=== PATIENT | female | born 1975 | race African-American/Black ===

== ENCOUNTER 2019-11-15 20:02 | Emergency (ER) | payer BC ==
[~2019-11-15] VITALS: Ht 160 cm; Wt 68.0 kg
--- NOTE | 2019-11-15 20:30 | NUR ---
Pt is in Room 5A. Dr. Jenkins at bedside for MSE.
[2019-11-15] MEDS: IBUPROFEN 800 MG TABLET PO ONE (20:35)
[2019-11-15] MEDS ORDERED: IBUPROFEN 800 MG TABLET ONE (20:38)
--- NOTE | 2019-11-15 20:50 | NUR ---
Logging Engineer at bedside.
--- NOTE | 2019-11-15 21:15 | NUR ---
Pt went down to CT at this time.
--- NOTE | 2019-11-15 21:56 | NUR ---
Pt back from CT at this time. Phone provided as requested. Ice packs placed on site.
--- NOTE | 2019-11-15 22:03 | NUR ---
Per Dr. Jenkins, hold off on the splint, until CT results are back.
--- NOTE | 2019-11-15 22:15 | NUR ---
Dr Jenkins made aware that CT resuls are back.
--- NOTE | 2019-11-15 22:25 | NUR ---
Paged Dr. Olivarez for consult. Dr Jenkins and Dr. Olivarez in phone call. Dr. Olivarez wants to admit patient for L ankle fracture. Pending insurance approval at this time.
--- NOTE | 2019-11-15 22:40 | NUR ---
IV 22g saline lock placed in right forearm
[2019-11-15 22:45] LABS: BASOPHILS % (AUTO) 0.7 % (0.0-2.0); EOSINOPHILS % (AUTO) 0.5 % (0.0-7.0); HEMOGLOBIN 12.7 g/dL (10.9-14.3); LYMPHOCYTES # (AUTO) 2.6 K/uL (20.0-40.0); LYMPHOCYTES % (AUTO) 47.9 % (20.5-51.5); MEAN CORPUSCULAR HEMOGLOBIN 33.7 uug (24.7-32.8); MEAN CORPUSCULAR HGB CONC 34 g/dL (32.3-35.6); MEAN CORPUSCULAR VOLUME 100.7 fL (75.5-95.3); MONOCYTES # (AUTO) 0.3 K/uL (2.0-10.0); NEUTROPHILS # (AUTO) 2.5 K/uL (1.8-8.9); NEUTROPHILS % (AUTO) 44.9 % (38.5-71.5); PLATELET COUNT (AUTO) 349 K/uL (179-408); RED BLOOD CELL COUNT(AUTO) 3.77 MIL/uL (3.63-4.92); WHITE BLOOD COUNT (AUTO) 5.5 K/uL (3.8-11.8)
--- NOTE | 2019-11-15 22:49 | NUR ---
Called for bed, [employer] will call me back.
[2019-11-15 22:51] LABS: CREATININE 0.9 mg/dL (0.6-1.3); POTASSIUM 3.7 mmol/L (3.5-5.1)
[2019-11-15 22:56] LABS: BILIRUBIN,DIRECT 0.1 mg/dL (0.0-0.2); BILIRUBIN,TOTAL 0.3 mg/dL (0.2-1.0); TOTAL PROTEIN, SERUM 7.8 g/dL (6.4-8.2)
--- NOTE | 2019-11-15 23:51 | NUR ---
Patient changed her mind about admission and requested to be discharge. Dr. Jenkins had a lengthy conversation with patient. Pedal pulses strong and equal bilaterally. Sugar Tong splint added to Short Leg splint, pt tolerated well. Wrapped with THOMAS wrap. Crutches dispensed, and teaching done. Pt is now cleared for DC. All written and verbal after care instructions given. Patient verbalizes understanding of instructions. Stressed follow up with Dr. Way for Ortho surgery; or return to ER for worsening s/s. Pt was wheeled out to her car by Didi VERMA, in stable condition.
[2019-11-16 00:05] VITALS: BP 105/88
== END 2019-11-15 23:50 | disposition home or self-care (01) ==
LOC: ER 20:05
DX: S82.842A Displaced bimalleolar fracture of left lower leg, initial encounter for closed fracture (principal); W01.0XXA Fall on same level from slipping, tripping and stumbling without subsequent striking against object, initial encounter; Y93.51 Activity, roller skating (inline) and skateboarding; Y92.89 Other specified places as the place of occurrence of the external cause
CPT/HCPCS: 36415; 73610; 73700; 85025; 85730; A4663

== ENCOUNTER 2019-11-17 12:57 | Inpatient (IN) | payer BC ==
[~2019-11-17] VITALS: Ht 160 cm; Wt 68.0 kg
--- NOTE | 2019-11-17 13:25 | NUR ---
Dr Rinaldi at the bedside for MSE. Pt arrived w LLE splint and using own crutches.
--- NOTE | 2019-11-17 13:30 | NUR ---
DR Rinaldi paged Dr Olivarez( Ortho), awaiting call back.
[2019-11-17] MEDS ORDERED: HYDROMORPHONE 2 MG/1 ML DISP.SYRIN ONE (13:40)
[2019-11-17] MEDS ORDERED: ONDANSETRON 4 MG/2 ML VIAL ONE (13:40)
[2019-11-17] MEDS ORDERED: HYDROMORPHONE 1 MG/1 ML DISP.SYRIN IM ONE (13:45)
[2019-11-17] MEDS ORDERED: ONDANSETRON 4 MG/2 ML VIAL IM ONE (13:45)
[2019-11-17] MEDS ORDERED: IV NORMAL SALINE 1000 ML BAG IV ONE (14:30)
[2019-11-17 15:04] LABS: BASOPHILS % (AUTO) 0.5 % (0.0-2.0); EOSINOPHILS # (AUTO) 0.1 K/uL (0.0-0.7); EOSINOPHILS % (AUTO) 0.6 % (0.0-7.0); HEMATOCRIT 35.9 % (31.2-41.9); HEMOGLOBIN 11.9 g/dL (10.9-14.3); LYMPHOCYTES # (AUTO) 4.3 K/uL (20.0-40.0); LYMPHOCYTES % (AUTO) 39.8 % (20.5-51.5); MEAN CORPUSCULAR HEMOGLOBIN 33.6 uug (24.7-32.8); MEAN CORPUSCULAR HGB CONC 33 g/dL (32.3-35.6); MONOCYTES # (AUTO) 0.7 K/uL (2.0-10.0); MONOCYTES % (AUTO) 6.8 % (0.0-11.0); NEUTROPHILS # (AUTO) 5.7 K/uL (1.8-8.9); NEUTROPHILS % (AUTO) 52.3 % (38.5-71.5); PLATELET COUNT (AUTO) 341 K/uL (179-408); RED BLOOD CELL COUNT(AUTO) 3.56 MIL/uL (3.63-4.92); WHITE BLOOD COUNT (AUTO) 10.9 K/uL (3.8-11.8)
[2019-11-17 15:08] LABS: CREATININE 0.9 mg/dL (0.6-1.3); POTASSIUM 2.9 mmol/L (3.5-5.1)
[2019-11-17 15:20] LABS: BILIRUBIN,DIRECT 0.1 mg/dL (0.0-0.2); BILIRUBIN,TOTAL 0.6 mg/dL (0.2-1.0); TOTAL PROTEIN, SERUM 7.7 g/dL (6.4-8.2)
--- NOTE | 2019-11-17 16:16 | NUR ---
Patient is resting comfortably in bed with eyes closed,NAD noted.
[2019-11-17 17:00] VITALS: BP 125/80
[2019-11-17] MEDS ORDERED: ONDANSETRON 4 MG/2 ML VIAL IV PRN (17:45)
[2019-11-17] MEDS ORDERED: POTASSIUM CHLORIDE 20 MEQ in IV D5/ 0.9% NACL 1,000 ML IV PRN (17:45)
[2019-11-17] MEDS ORDERED: ACETAMINOPHEN 650 MG SUPP.RECT RC PRN (17:45)
[2019-11-17] MEDS ORDERED: HYDROMORPHONE 1 MG/1 ML DISP.SYRIN IV PRN (17:45)
[2019-11-17] MEDS ORDERED: POTASSIUM CHLORIDE 20 MEQ TAB.PRT.SR PO ONE (18:10)
--- NOTE | 2019-11-17 18:36 | NUR ---
PATIENT CALM AND COMFORTABLE WITH NO SIGNS OF DISTRESS THROUGH OUT SHIFT AND STABLE VITAL SIGNS ; PATIENT AT BASELINE MENTAL STATUS; MEDICATION COMPLIANT.
[2019-11-17 20:00] VITALS: BP 143/87
--- NOTE | 2019-11-17 20:00 | NUR ---
Patient received into care, laying in bed with left leg elevated, talking on telephone. Pt is alert and oriented x4 and has no complaints of pain or discomfort at this time. Left AC IV cath is intact and patent and running prescribed IV fluids. All safety, allergy, isolation, and fall precaution measures are in place. Call light and personal items are within reach. Will continue to monitor and assess.
[2019-11-18 04:00] VITALS: BP 108/69
--- NOTE | 2019-11-18 05:00 | NUR ---
Patient slept intermittently throughout night with complaints of pain addressed with prescribed analgesics, which patient tolerated well with no adverse side effects verbalized by patient or noted/observed by this nurse. IV site is patent and intact with IVF running as ordered. All safety, fall, and isolation precautions remain in effect. Call light and personal items remain within reach.
--- NOTE | 2019-11-18 06:05 | NUR ---
Pt has questions for MD Olivarez and is unwilling to sign surgical consent until she speaks with the doctor.
[2019-11-18 06:28] LABS: BASOPHILS % (AUTO) 0.6 % (0.0-2.0); EOSINOPHILS # (AUTO) 0.1 K/uL (0.0-0.7); EOSINOPHILS % (AUTO) 1.7 % (0.0-7.0); HEMATOCRIT 31.2 % (31.2-41.9); HEMOGLOBIN 10.6 g/dL (10.9-14.3); LYMPHOCYTES % (AUTO) 29.6 % (20.5-51.5); MEAN CORPUSCULAR HEMOGLOBIN 34.6 uug (24.7-32.8); MEAN CORPUSCULAR HGB CONC 34 g/dL (32.3-35.6); MEAN CORPUSCULAR VOLUME 102.2 fL (75.5-95.3); MONOCYTES # (AUTO) 0.5 K/uL (2.0-10.0); NEUTROPHILS # (AUTO) 4.2 K/uL (1.8-8.9); NEUTROPHILS % (AUTO) 61.1 % (38.5-71.5); PLATELET COUNT (AUTO) 275 K/uL (179-408); RED BLOOD CELL COUNT(AUTO) 3.05 MIL/uL (3.63-4.92); WHITE BLOOD COUNT (AUTO) 6.9 K/uL (3.8-11.8)
[2019-11-18 07:07] LABS: CREATININE 0.8 mg/dL (0.6-1.3); MAGNESIUM 1.6 mg/dL (1.8-2.4); PHOSPHOROUS 2.4 mg/dL (2.5-4.9); POTASSIUM 3.6 mmol/L (3.5-5.1)
[2019-11-18] MEDS ORDERED: BUPIVACAINE 0.25% 30 ML VIAL ONE (07:20)
[2019-11-18] MEDS ORDERED: POLYMYXIN B SULFATE 500,000 UNITS VIAL IR ONE (07:30)
[2019-11-18] MEDS ORDERED: BACITRACIN 50,000 UNITS VIAL IR ONE (07:30)
--- NOTE | 2019-11-18 08:00 | NUR ---
Patient was taken down for surgery. Will assess once back on the floor.
[2019-11-18] MEDS ORDERED: HYDROMORPHONE 2 MG/1 ML DISP.SYRIN ONE (08:09)
[2019-11-18] MEDS ORDERED: MIDAZOLAM HCL 2 MG/2 ML VIAL ONE (08:09)
[2019-11-18] MEDS ORDERED: TRIAMCINOLONE ACETONIDE 40 MG/1 ML VIAL ONE (08:50)
[2019-11-18] MEDS ORDERED: PANTOPRAZOLE SODIUM 40 MG VIAL IV SCH (09:00)
[2019-11-18] MEDS ORDERED: VANCOMYCIN 1000 MG VIAL MC ONE (09:00)
[2019-11-18] MEDS ORDERED: SEVOFLURANE 250 ML BOTTLE ONE (09:06)
[2019-11-18] MEDS ORDERED: FENTANYL CITRATE 100 MCG/2 ML AMPUL ONE (10:09)
[2019-11-18] MEDS ORDERED: PROPOFOL 200 MG/20 ML BOTTLE ONE (10:30)
[2019-11-18] MEDS ORDERED: IV NORMAL SALINE 1000 ML BAG ONE (10:30)
[2019-11-18] MEDS ORDERED: KETOROLAC TROMETHAMINE 30 MG INJ ONE (10:30)
[2019-11-18] MEDS ORDERED: ONDANSETRON 4 MG/2 ML VIAL ONE (10:30)
[2019-11-18] MEDS ORDERED: LIDOCAINE-MPF 2% 5 ML VIAL ONE (10:30)
[2019-11-18] MEDS ORDERED: CEFAZOLIN 1 G VIAL ONE (10:30)
[2019-11-18] MEDS ORDERED: DEXAMETHASONE SOD PHOSPHATE 4 MG INJ ONE (10:30)
[2019-11-18 11:15] VITALS: BP 122/82
--- NOTE | 2019-11-18 11:15 | NUR ---
Received patient siting up in bed awake, alert and oriented. No sign of respiratory distress noted, patient saturating at 97% on 3L of oxygen. IV intact and patent on the right AC 20 gauge. Patient report no pain at this time but does have left leg elevated with a ice pack. Safety precautions in place, bed in the lowest position, locked with alarm activated. Also patients call light and belongings are within reach. Will continue to monitor.
[2019-11-18] MEDS: MAGNESIUM SULFATE/D5W 100 ML IV SCH ×2 (11:46→13:21)
--- NOTE | 2019-11-18 14:27 | NUR ---
Patient took off oxygen and is tolerating room air well. Took oxygen saturation and she is at 97%. Will continue to monitor.
--- NOTE | 2019-11-18 15:00 | NUR ---
Patient is suppose to be running KCL at 75 cc/hr. Potassium as of is 3.6. made aware and gave order to discontinue KCL.
[2019-11-18 15:49] VITALS: BP 128/87
[2019-11-18] MEDS: CEFAZOLIN 1 G in IV DEXTROSE 5% 50 ML IV SCH ×2 (16:28→23:05)
[2019-11-18] MEDS ORDERED: NEUTRA PHOS PACKET PO ONE (17:00)
--- NOTE | 2019-11-18 18:17 | NUR ---
Patient resting comfortably in bed. No sign of respiratory distress, patient is saturating well on room air. Patient's IV is patent and intact, with no signs of infiltration. Safety precautions in place, bed in the lowest position and locked with call light and belongings within reach. Will endorse patient over to oncoming nurse.
--- NOTE | 2019-11-18 19:45 | NUR ---
Received patient alert x 4 ,s/p Left ankle ORIF, able to wiggle toes , capillary refill less than 3 sec, elevated left leg with pillow, c/o left ankle pain /10 . Will give pain medication as per Md ordered. Safety measures in place,.Call light with in reach.Bed in lowest position.Will continue to monitor.
[2019-11-18 20:08] VITALS: BP 119/84
[2019-11-18] MEDS: MORPHINE SULFATE 4 MG/1 ML DISP.SYRIN IV PRN (20:50)
[2019-11-19] MEDS: MORPHINE SULFATE 4 MG/1 ML DISP.SYRIN IV PRN ×3 (00:40→12:33)
[2019-11-19 01:10] LABS: *BILIRUBIN,URIN NEGATIVE (NEGATIVE); *BLOOD, URINE 1+ (NEGATIVE); *CLARITY,URINE CLEAR (CLEAR); *COLOR,URINE YELLOW (YELLOW); *KETONES,URINE NEGATIVE (NEGATIVE); *UROBILINOGEN,URINE 0.2 E.U./dl (NORMAL); LEUKOCYTE ESTERASE ,URINE NEGATIVE (NEGATIVE); NITRITE, URINE NEGATIVE (NEGATIVE); UGLUCOSE NEGATIVE (NEGATIVE)
[2019-11-19 01:21] LABS: BACTERIA,URINE NONE SEEN /HPF (NONE SEEN); SQUAMOUS EPITHELIAL CELL,UR FEW /HPF (NONE SEEN); WBC,URINE 0-3 /HPF (0-3)
[2019-11-19 05:36] VITALS: BP 116/82
--- NOTE | 2019-11-19 06:14 | NUR ---
Patient no s/s of distress, v/s stable , left leg elevated with pillow,Will endorse to day shift nurse in stable condition.
[2019-11-19 06:22] LABS: CREATININE 0.9 mg/dL (0.6-1.3); MAGNESIUM 2.3 mg/dL (1.8-2.4)
[2019-11-19 06:33] LABS: POTASSIUM 3.8 mmol/L (3.5-5.1)
[2019-11-19] MEDS ORDERED: PANTOPRAZOLE SODIUM 40 MG TABLET.DR PO SCH (07:30)
[2019-11-19 08:43] VITALS: BP 116/78
--- NOTE | 2019-11-19 16:08 | NUR ---
dc orders received noted and carried out,dc instruction and education given to the pt,ethel fenton per md orders. pt said she will follow up with dr kimble in one week.pt left the facility via private car in stable condition
== END 2019-11-19 16:15 | disposition home or self-care (01) | DRG 493 ==
LOC: ER 12:57 → MEDSURG3 17:04
PROVIDERS: ADMIT Internal Medicine; ATTEND Internal Medicine
PROC: 0QSK04Z Reposition Left Fibula with Internal Fixation Device, Open Approach (ICD-10-PCS; principal; 2019-11-18)
DX: S82.842A Displaced bimalleolar fracture of left lower leg, initial encounter for closed fracture (principal); D68.69 Other thrombophilia; W18.30XA Fall on same level, unspecified, initial encounter; Y93.51 Activity, roller skating (inline) and skateboarding; Y99.8 Other external cause status; E87.6 Hypokalemia; Z87.891 Personal history of nicotine dependence; D75.89 Other specified diseases of blood and blood-forming organs; S93.02XA Subluxation of left ankle joint, initial encounter; W19.XXXA Unspecified fall, initial encounter; Y92.89 Other specified places as the place of occurrence of the external cause
CPT/HCPCS: 36415; 70030-TC; 71045; 73600; 83735; 84100; 85025; 85730; 93005; A4663; C9113; G0378; J0690; J1100; J1170; J1885; J2250; J2270; J2405; J3010; J3301; J3370; J3475; J3480; J3490; J7030; J7040; J7042; J7060; U0003-CS